=== PATIENT | female | born 1950 | race African-American/Black ===

== ENCOUNTER 2016-08-26 09:52 | Emergency (ER) | payer OTHER ==
[2014-07-27 06:23] VITALS: BMI 24.8
[~2016-08-26 09:52] MED LIST: K-DUR20 MEQ PO; MOEXIPRIL HCTZ PO; NORVASC10 MG PO; ZYRTEC10 MG PO
== END 2016-08-26 12:08 | disposition home or self-care (01) ==
LOC: D.ER 09:52
DX: S43.005A Unspecified dislocation of left shoulder joint, initial encounter (principal); W03.XXXA Other fall on same level due to collision with another person, initial encounter; Y93.89 Activity, other specified; Y92.89 Other specified places as the place of occurrence of the external cause; S42.92XA Fracture of left shoulder girdle, part unspecified, initial encounter for closed fracture

== ENCOUNTER → 2017-06-30 19:33 | Outpatient (CLI) | payer BC ==
[2014-07-27 06:23] VITALS: BMI 24.8
== END | disposition home or self-care (01) ==
LOC: D.MAMMO 05-28 16:00
DX: Z12.31 Encounter for screening mammogram for malignant neoplasm of breast (principal)

== ENCOUNTER 2020-09-30 09:41 | Inpatient (IN) | payer BC, MEDICARE ==
[~2020-09-30] VITALS: Ht 160 cm; Wt 75.0 kg
[2020-09-30 10:32] LABS: ANION GAP 12.9 mmol/L (8-16); CALCIUM 9.4 mg/dL (8.5-10.1); CARBON DIOXIDE 27.4 mmol/L (21.0-32.0); CREATININE - SERUM 0.9 mg/dL (0.6-1.3); POTASSIUM - SERUM 3.3 mmol/L (3.5-5.1)
[2020-09-30 10:42] LABS: BASOPHILS 0.2 % (0-2); EOSINOPHILS 1.1 % (0-7); HEMATOCRIT 41.3 % (36.0-48.0); HEMOGLOBIN 13.6 g/dL (12-16); IMMATURE GRANULOCYTES 0.6 % (0-5); LYMPHOCYTE ABS# 3.79 10x3/uL (1.18-3.74); LYMPHOCYTES 23.4 % (15-50); MCH 29.8 pg (26.0-34.0); MCHC 32.9 g/dL (31.0-37.0); MCV 90.6 fL (80.0-100.0); MEAN PLATELET VOLUME 9.7 fL (7.4-10.4); MONOCYTES 10.1 % (2-11); NEUTROPHIL ABS# 10.46 10x3/uL (1.56-6.13); NEUTROPHILS 64.6 % (40-80); PLATELET COUNT 332 10x3/uL (130-400); RBC 4.56 10x6/uL (4.00-5.40); RDW 15.3 % (11.5-14.5); WBC 16.2 10x3/uL (4.8-10.8)
[2020-09-30 10:44] LABS: ALBUMIN 3.6 g/dL (3.4-5.0); BILIRUBIN - TOTAL 0.73 mg/dL (0.2-1.3); PROTEIN - SERUM 8.8 g/dL (6.4-8.2)
[2020-09-30 12:59] VITALS: BP 139/73
--- NOTE | 2020-09-30 14:30 | NUR ---
RECEIVED TO ROOM 2215 VIA WC FROM ER. A/O X3. LUNGS ARE CLEAR BILATERALLY, NO COUGH NOTED. SKIN INTACT WITHOUT REDNESS EXCEPT SWELLING AND WARMTH TO RIGHT LE. WILL MONITOR.
[2020-09-30 14:32] VITALS: BP 120/66; Ht 160 cm; Wt 75.0 kg
[2020-09-30 16:49] VITALS: BP 118/58
--- NOTE | 2020-09-30 18:30 | NUR ---
ATE ALL OF SUPPER. DENIES NEEDS. NO CHANGES NOTED. UP TO BR WITH ONE PERSON SBA. VOIDED CLEAR YELLOW URINE WITHOUT DIFFICULTY.
--- NOTE | 2020-09-30 18:41 | NUR ---
ATE ALL OF SUPPER TRAY. DENIES NEEDS. NO CHANGES NOTED.
[2020-10-01 00:40] VITALS: BP 108/69
--- NOTE | 2020-10-01 03:44 | NUR ---
ASSUMED CARE OF PT AFTER REPORT/ROUNDS. PT A&Ox4 AND DENIES PAIN/DISCOMFORT. PT HAS BEEN RESTING IN BED WITH FLUIDS RUNNING PER ORDER.
[2020-10-01 07:56] LABS: BASOPHILS 0.3 % (0-2); EOSINOPHILS 1.6 % (0-7); HEMATOCRIT 37.3 % (36.0-48.0); HEMOGLOBIN 12.1 g/dL (12-16); IMMATURE GRANULOCYTES 0.4 % (0-5); LYMPHOCYTE ABS# 2.66 10x3/uL (1.18-3.74); LYMPHOCYTES 23.3 % (15-50); MCH 29.4 pg (26.0-34.0); MCHC 32.4 g/dL (31.0-37.0); MCV 90.8 fL (80.0-100.0); MEAN PLATELET VOLUME 9.7 fL (7.4-10.4); MONOCYTES 8.1 % (2-11); NEUTROPHIL ABS# 7.59 10x3/uL (1.56-6.13); NEUTROPHILS 66.3 % (40-80); PLATELET COUNT 317 10x3/uL (130-400); RBC 4.11 10x6/uL (4.00-5.40); RDW 15.4 % (11.5-14.5)
[2020-10-01 07:57] LABS: WBC 11.4 10x3/uL (4.8-10.8)
[2020-10-01 08:14] VITALS: BP 118/72
--- NOTE | 2020-10-01 08:16 | NUR ---
AWAKE AND ALERT. ORIENTED X3. NO C/O AT THIS TIME. LUNGS ARE CLEAR BILATERALLY, NO COUGH NOTED. REPORTED USED IS INSTRUCTED. SKIN IS INTACT WITHOUT REDNESS EXCEPT RIGHT LE WHICH IS SLIGHTLY SWOLLEN AND WARM, IMPROVED FROM YESTERDAY. IV TO RIGHT FOREARM IS PATENT WITHOUT REDNESS AT INSERTION SITE. DENIES NEEDS.
[2020-10-01 08:23] LABS: BILIRUBIN - TOTAL 0.72 mg/dL (0.2-1.3); CALCIUM 8.6 mg/dL (8.5-10.1); CARBON DIOXIDE 26.6 mmol/L (21.0-32.0); CREATININE - SERUM 0.9 mg/dL (0.6-1.3); MAGNESIUM - SERUM 2.2 mg/dL (1.8-2.4); POTASSIUM - SERUM 3.6 mmol/L (3.5-5.1); PROTEIN - SERUM 7.2 g/dL (6.4-8.2)
--- NOTE | 2020-10-01 10:00 | NUR ---
ATE ALL OF BREAKFAST. TOOK AM MEDS WITHOUT DIFFICULTY. DENIES NEEDS.
--- NOTE | 2020-10-01 10:30 | NUR ---
UP TO BR WITH ONE PERSON SBA. VOIDED WITHOUT DIFFICULTY. KAI CARE PER SELF.
--- NOTE | 2020-10-01 12:15 | NUR ---
LUNCH SERVED IN ROOM. FEEDS SELF WITHOUT HELP. DENIES NEEDS.
[2020-10-01 13:42] VITALS: BP 123/68
[2020-10-01 16:35] VITALS: BP 114/73
--- NOTE | 2020-10-01 18:46 | NUR ---
ATE MOST OF SUPPER. UP TO BR WITH SBA. NO CHANGES NOTED. DENIES NEEDS.
--- NOTE | 2020-10-02 06:30 | NUR ---
ASSUMED CARE OF PT LAST NIGHT AFTER REPORT. PT DENIES PAIN/DISCOMFORT. SWELLING TRACE TO RLE, IF ANY. CONTINUES TO WEAR SCD'S AND VERBALIZES ANTICIPATING D/C TODAY. PT HAS SLEPT AND IN BED RESTING AT THIS TIME.
[2020-10-02 06:51] LABS: BASOPHILS 0.6 % (0-2); EOSINOPHILS 2.8 % (0-7); HEMATOCRIT 34.8 % (36.0-48.0); HEMOGLOBIN 11.1 g/dL (12-16); IMMATURE GRANULOCYTES 0.6 % (0-5); LYMPHOCYTE ABS# 2.77 10x3/uL (1.18-3.74); LYMPHOCYTES 25.8 % (15-50); MCH 29.1 pg (26.0-34.0); MCHC 31.9 g/dL (31.0-37.0); MCV 91.3 fL (80.0-100.0); MEAN PLATELET VOLUME 9.7 fL (7.4-10.4); MONOCYTES 9.7 % (2-11); NEUTROPHILS 60.5 % (40-80); PLATELET COUNT 295 10x3/uL (130-400); RBC 3.81 10x6/uL (4.00-5.40); RDW 15.5 % (11.5-14.5); WBC 10.7 10x3/uL (4.8-10.8)
[2020-10-02 07:19] LABS: ALBUMIN 2.7 g/dL (3.4-5.0); ANION GAP 12.4 mmol/L (8-16); BILIRUBIN - TOTAL 0.4 mg/dL (0.2-1.3); CALCIUM 8.6 mg/dL (8.5-10.1); CARBON DIOXIDE 23.2 mmol/L (21.0-32.0); CREATININE - SERUM 0.9 mg/dL (0.6-1.3); MAGNESIUM - SERUM 2.2 mg/dL (1.8-2.4); POTASSIUM - SERUM 3.6 mmol/L (3.5-5.1); PROTEIN - SERUM 7.3 g/dL (6.4-8.2)
[2020-10-02 10:02] VITALS: BP 143/77
[2020-10-02 14:07] VITALS: BP 187/82
[2020-10-02 18:59] VITALS: BP 149/78
--- NOTE | 2020-10-02 18:59 | NUR ---
I have reviewed this patient and I concur with the Shift Assessment completed by the Licensed Practical Nurse today this shift.
[2020-10-02 20:00] VITALS: BP 126/85
[2020-10-03 04:00] VITALS: BP 144/72
--- NOTE | 2020-10-03 04:45 | NUR ---
PATIENT REPORTED TENDERNESS AT IV SITE. SLOWED RATE OF VANCOMYCIN. AFTER ABX, PATIENT STATED THAT SITE WAS LOW ALTITUDE AIR DEFENSE GUNNER. NEW 20G PIV STARTED TO LEFT AC.
[2020-10-03 06:37] LABS: BASOPHILS 0.2 % (0-2); EOSINOPHILS 2.9 % (0-7); HEMATOCRIT 36.7 % (36.0-48.0); HEMOGLOBIN 12.1 g/dL (12-16); IMMATURE GRANULOCYTES 0.4 % (0-5); LYMPHOCYTES 24.2 % (15-50); MCV 91.1 fL (80.0-100.0); MEAN PLATELET VOLUME 9.5 fL (7.4-10.4); MONOCYTES 7.1 % (2-11); NEUTROPHIL ABS# 6.45 10x3/uL (1.56-6.13); NEUTROPHILS 65.2 % (40-80); PLATELET COUNT 328 10x3/uL (130-400); RBC 4.03 10x6/uL (4.00-5.40); RDW 15.5 % (11.5-14.5); WBC 9.9 10x3/uL (4.8-10.8)
[2020-10-03 06:51] LABS: ANION GAP 14.9 mmol/L (8-16); BILIRUBIN - TOTAL 0.41 mg/dL (0.2-1.3); CALCIUM 8.9 mg/dL (8.5-10.1); CARBON DIOXIDE 22.4 mmol/L (21.0-32.0); CREATININE - SERUM 0.9 mg/dL (0.6-1.3); MAGNESIUM - SERUM 2.3 mg/dL (1.8-2.4); POTASSIUM - SERUM 3.3 mmol/L (3.5-5.1); PROTEIN - SERUM 7.9 g/dL (6.4-8.2)
[2020-10-03 08:50] VITALS: BP 122/59
[2020-10-03] MEDS ORDERED: FLORAJEN DIGES1 EACH PO (14:01)
[2020-10-03] MEDS ORDERED: DOXYCYCLINE HY100 M2 PO (14:02)
[2020-10-03] MEDS ORDERED: AUGMENTIN 875-11 TAB PO (14:02)
--- NOTE | 2020-10-03 14:24 | MORECARE ---
CASE MANAGEMENT DISCHARGE SUMMARY PATIENT: MICKEY SIN UNIT: [id number] ADM DATE: 09/30/20 AGE: 70 : 48 SEX: F ROOM/BED: D.[facility]5 AUTHOR: OLIVIER,DOC PHYSICIAN: REFERRING PHYSICIAN: REBECA HOUSE DO DATE OF SERVICE: 10/03/20 Case Management Discharge Planning Summary DCP REVIEW SUMMARY ANTICIPATED D/C DATE: EXPECTED LOS : CASE STATUS: DCP Initiated INITIAL REVIEW: 09/30/2020 INITIAL REVIEWER: Sanjuana Truong FINAL DISCHARGE DISPOSITION: 01 : Home or Self Care (Routine Discharge) FINAL REVIEWER: FINAL REVIEW DATE: DCP [employer] Questions & Answers QUESTION: ANSWER : PATIENT: MICKEY SIN ENCOUNTER: [id number] MEDICAL RECORD#: [id number] ADMISSION DATE: 09/30/2020 DISCHARGE DATE: ATTENDING MD: REBECA BALDERRAMA : AGE: 70 MARITAL STATUS: D DC PLAN ID: [id number] FACILITY: [facility] PRINTED ON: 10/03/20 14:23 CT All edits/amendments must be made on the electronic document DICTATION DATE: 10/03/20 142 BUILDER'S LABOURER: SIRISHA 10/03/20 142 RPT#: [id number] DC DATE: STATUS: ADM IN [facility] [address] [place] [address] END OF REPORT
--- NOTE | 2020-10-03 14:35 | MORECARE ---
CASE MANAGEMENT DISCHARGE SUMMARY PATIENT: MICKEY SIN UNIT: [id number] ADM DATE: 09/30/20 AGE: 70 : 46 SEX: F ROOM/BED: D.2215 AUTHOR: OLIVIER,DOC PHYSICIAN: REFERRING PHYSICIAN: REBECA HOUSE DO DATE OF SERVICE: 10/03/20 Case Management Discharge Planning Summary COMMENTS ENTERED DATE: 10/03/20 14:22 CT COMMENT TYPE: Discharge Planning REVIEWER: Sanjuana Truong CM met with patient to complete initial dc planning assessment. CM educated patient on the CM role and verbal consent given by patient to complete assessment. Patient lives at home with her sister where she is independent with her care. At discharge patient plans to return home and feels this is a safe discharge. She has her car in the parking lot and feels safe driving herself home. 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 CM discussed availability of home health, rehab services, and medical equipment. Patient denied known discharge needs at this time. IMM served and explained. CM will continue to follow and will assist as needed with dc plans/needs. DCP REVIEW SUMMARY ANTICIPATED D/C DATE: EXPECTED LOS : CASE STATUS: DCP Initiated INITIAL REVIEW: 09/30/2020 INITIAL REVIEWER: Sanjuana Truong FINAL DISCHARGE DISPOSITION: 01 : Home or Self Care (Routine Discharge) FINAL REVIEWER: FINAL REVIEW DATE: DCP Focus Questions & Answers QUESTION: ANSWER : PATIENT: MICKEY SIN ENCOUNTER: [id number] MEDICAL RECORD#: [id number] ADMISSION DATE: 09/30/2020 DISCHARGE DATE: ATTENDING MD: REBECA BALDERRAMA : AGE: 70 MARITAL STATUS: D DC PLAN ID: [id number] FACILITY: [facility] PRINTED ON: 10/03/20 14:35 CT All edits/amendments must be made on the electronic document DICTATION DATE: 10/03/201434 COMBINATION TECHNICIAN: SIRISHA 10/03/201434 RPT#: [id number] DC DATE: STATUS: ADM IN [facility] [address] [place] [address] END OF REPORT
[2020-10-03 14:48] VITALS: BP 144/58
== END 2020-10-03 16:42 | disposition home or self-care (01) | DRG 603 ==
LOC: D.ER 09:41 → D.MS 11:47
PROVIDERS: Family Medicine; ADMIT Family Medicine; ATTEND Family Medicine
DX: L03.115 Cellulitis of right lower limb (principal); I10 Essential (primary) hypertension; D72.829 Elevated white blood cell count, unspecified